=== PATIENT | female | born 1980 | race Caucasian/White ===

== ENCOUNTER → 2017-09-23 | Outpatient (CLI) | payer BC ==
[~2017-09-23] MED LIST: IBUP-1459 PO
[2017-09-23 17:36] LABS: HEMATOCRIT 39.7 % (37-47); HEMOGLOBIN 13.6 g/dL (12.0-16.0); MEAN CELL VOLUME 88.2 fL (80-100); MEAN CORPUSCULAR HEMOGLOBIN 30.2 pg (25-34); MEAN CORPUSCULAR HGB CONC 34.3 g/dl (32-36); MEAN PLATELET VOLUME 9.1 fL (7.4-10.4); PLATELET COUNT 350 K/uL (130-400); RED CELL DISTRIBUTION WIDTH CV 12.7 % (11.5-14.5); RED CELL DISTRIBUTION WIDTH SD 40.4 fL (36.4-46.3); WHITE BLOOD COUNT 11.07 K/uL (4.8-10.8)
[2017-09-23 19:23] LABS: ALBUMIN 4.3 gm/dl (3.4-5.0); ALT/SGPT 37 U/L (12-78); BLOOD UREA NITROGEN 10 mg/dl (7-18); CALCIUM 8.9 mg/dl (8.5-10.1); CARBON DIOXIDE 28 mmol/L (21-32); GLUCOSE 83 mg/dl (70-99); POTASSIUM 3.8 mmol/L (3.5-5.1); SODIUM 138 mmol/L (136-145)
[2017-09-23 19:34] LABS: ALKALINE PHOSPHATASE 82 U/L (45-117); AST/SGOT 18 U/L (15-37); TOTAL PROTEIN 7.9 gm/dl (6.4-8.2)
== END | disposition home or self-care (01) ==
LOC: C.LABPVFM 15:41
PROVIDERS: ATTEND Family Medicine
DX: L81.9 Disorder of pigmentation, unspecified (principal)

== ENCOUNTER → 2017-09-24 | Outpatient (CLI) | payer BC | END | disposition home or self-care (01) | LOC: C.LABPVFM 13:55 | PROVIDERS: ATTEND Family Medicine | DX: R74.8 Abnormal levels of other serum enzymes (principal) ==

== ENCOUNTER → 2017-12-17 | Outpatient (CLI) | payer BC | END | disposition home or self-care (01) | LOC: C.LABPVFM 15:51 | PROVIDERS: ATTEND Family Medicine | DX: E55.9 Vitamin D deficiency, unspecified (principal); R74.8 Abnormal levels of other serum enzymes ==

== ENCOUNTER 2019-04-17 10:21 | Observation (INO) ==
--- NOTE | 2019-03-27 09:46 | PAT Medication Instructions ---
Medication Instructions Date of Service March 27, 2019 Home Medications cholecalciferol (vitamin D3) [Vitamin D3] 2,000 - 3,000 unit PO DAILY DO NOT take the morning of surgery cholecalciferol (vitamin D3) [Vitamin D3] 2,000 - 3,000 unit PO DAILY Take morning of surgery NOTHING TO EAT OR DRINK AFTER MIDNIGHT Other Notes If you have any questions please call us at [phone] or [phone] or [phone] or [phone]
--- NOTE | 2019-03-27 09:52 | Anesthesiology Consultation ---
Date of Service March 27, 2019 Assessment & Plan (1) Encounter for pre-operative examination: - No previous anesthesia records. Chart Review Chart Review: Acceptable Risk for Surgery and Patient seen in Pre Admission Testing Consults Requested none Teaching & Discussion Pre-Anesthesia Teaching/Discussion Notes: Instructed NPO after midnight before surgery, except medications with 15 cc of water. Medication instructions provided according to the PAT guidelines. History Surgery Operation Date: 04/17/19 07:30 Proposed Procedures p Robotic Total Laparoscopic Hysterectomy - Allen Sharma Jr, MD, FACOG Height/Weight Height: 5 ft 3.5 in Weight: 77.5 kg Allergies Allergy/AdvReac Type Severity Reaction Status Date / Time bee venom protein (honey bee) Allergy Severe . Verified 03/27/19 08:25 No Known Drug Allergies Allergy throat Verified 03/27/19 08:25 swelling Medications Home Medications Medication Instructions Recorded Confirmed Last Taken cholecalciferol (vitamin D3) 2,000 - 3,000 unit PO DAILY 03/20/19 03/27/19 Unknown [Vitamin D3] Past Medical History Medical History History of basal cell cancer stomach Hx of Lyme disease Uterine fibroid Vitamin D deficiency Exercise / Class Metabolic Activity II 4-5 Yardwork/Stairs/Walk up hill ([employer] A [employer] at [employer], so very active there. Able to easily climb FOS. Denies CP or SOB. ) Past Family History Family History Grandfather (Maternal) Family history of diabetes mellitus Grandfather (Paternal) Family history of diabetes mellitus Grandmother (Paternal) Family history of diabetes mellitus Myocardial infarction Heart disease Hypertension Grandmother (Maternal) Family history of diabetes mellitus Father Family history of diabetes mellitus Alcohol abuse Mother Alcohol abuse Brother Anxiety Aunt Breast cancer Past Surgical History Surgical History History of basal cell carcinoma (BCC) excision under local History of removal of cyst done under local Past Anesthesia History No Family Hx of Anesthesia Complications Patient has never personally had anesthesia other than local. History of PONV No Hx of Motion Sickness Social History Smoking Status: Current every day smoker tobacco type: cigarettes Smoking cigarettes per day: 1/2-3/4 ppd x 20 years Do You Dip or Chew Tobacco: No Hx Alcohol Use: Yes Alcohol type: beer alcohol intake frequency: a few times a week Hx Substance Use: Yes substance use type: marijuana Last Used Substance Other:: couple months ago Review of Systems Patient denies chest pain, shortness of breath, dyspnea on exertion, reflux, cough, wheezing, palpitations. +Joint Pain (Ankles, Elbows) Physical Exam Vital Signs BP: 134/88 P: 91 R: 16 T: 98.7 SPO2: 98% on RA ENMT Thyromental Distance: > or= 3.5 Finger Breadths (4) Mallampati Class: I Neck normal visual inspection; neck extension not limited Respiratory normal respiratory effort Auscultation: lungs clear to auscultation bilaterally Cardiovascular Rate/Rhythm: regular rate and regular rhythm Heart Sounds: no murmur Neurologic moves all extremities Psychiatric Orientation: alert and oriented x 3 Testing Laboratory Results 03/27/19 10:03 Blood Type O Positive 03/27/19 10:03 Antibody Screen NEGATIVE 03/27/19 10:03
[2019-03-27 10:56] LABS: Basophils # (auto) 0.05 K/uL (0-0.2); Basophils % (auto) 0.6 %; Eosinophils # (auto) 0.17 K/uL (0-0.5); Hematocrit (blood only) 39.2 % (37-47); Hemoglobin 13.5 g/dL (12.0-16.0); Immature Granulocytes # (auto) 0.03 K/uL (0.00-0.02); Immature Granulocytes % (auto) 0.3 %; Lymphocytes # (auto) 2.82 K/uL (1.2-3.4); Lymphocytes % (auto) 32.4 %; Mean Corpuscular Hemoglobin 30.5 pg (25-34); Mean Corpuscular Hgb Conc 34.4 g/dL (32-36); Mean Corpuscular Volume 88.5 fL (80-100); Monocytes # (auto) 0.76 K/uL (0.11-0.59); Monocytes % (auto) 8.7 %; Neutrophils # (auto) 4.87 K/uL (1.4-6.5); Platelet Count 330 K/uL (130-400); RDW Coefficient of Variation 12.8 % (11.5-14.5); RDW Standard Deviation 41.7 fL (36.4-46.3); Red Blood Count 4.43 M/uL (4.2-5.4)
--- NOTE | 2019-03-27 13:29 | History and Physical Report ---
DATE OF ADMISSION: 04/17/2019 ADMITTING DIAGNOSES: 1. Symptomatic submucosal fibroid. 2. Menorrhagia. ADMISSION HISTORY: The patient is a 38-year-old 2, para 2, last menstrual period of 03/13, partner with vasectomy, who is admitted for total laparoscopic hysterectomy for a symptomatic submucosal fibroid. The patient presented for evaluation of heavy menstrual bleeding and menorrhagia. She underwent an office SIS which showed what appeared to be a 3 cm submucosal fibroid. Treatment options were discussed with this including hysteroscopic resection versus definitive surgical therapy and the patient has opted for definitive surgical therapy. PAST MEDICAL HISTORY: OBSTETRICAL: x2. 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 MEDICAL: Abnormal Pap smear, Lyme's disease. SURGICAL: Colposcopy. ALLERGIES: No known drug allergies. SOCIAL HISTORY: Positive for smoking. FAMILY HISTORY: Noncontributory. REVIEW OF SYSTEMS: As per HPI. ADMISSION PHYSICAL EXAMINATION: GENERAL: Shows a pleasant female in no acute distress. VITAL SIGNS: She has a blood pressure 124/80 and a weight of 168 pounds. HEENT EXAMINATION: Unremarkable. NECK: Supple. LUNGS: Clear. HEART: With a regular rhythm and rate. ABDOMEN: Soft, nontender. PELVIC: Shows normal external genitalia. The vaginal vault is pink and rugated. The cervical os is multiparous and closed. Bimanual examination shows an anterior mobile uterus. Adnexa show no palpable masses. RECTAL: Confirmatory. EXTREMITIES: Shows no deep calf tenderness. NEUROLOGIC: Grossly intact. IMPRESSION: A 38-year-old G2, P2 for total laparoscopic hysterectomy for symptomatic submucosal fibroid. PLAN: Risks, benefits and alternatives to the surgery have been discussed. While the benefits will be cessation of the patient's menstrual cycles, the risks are bleeding, infection, and inadvertent injury to bowel or bladder, rehospitalization or need for surgery. We have also discussed the possibility that surgery will not be able to be completed laparoscopically, and will need to be converted to an open procedure. The patient understands this, the permit has been signed, and she wishes to proceed.
[~2019-04-17 10:21] MED LIST changes: +ACETAMINOPHEN 1000 MG/100 ML IV IV ONE; +CEFAZOLIN 2000MG 2,000 MG/15 ML SYR IV SCH; +DEXAMETHASONE SOD INJ 4 MG/ML VIAL ONE; -IBUP-1459 PO; +LACTATED RINGER'S 1,000 ML IV SCH; +LIDOCAINE HCL 2% 2 ML VIAL/AMP(20MG/ML) INFIL ONE; +LR 15ML/HR IV SCH; +MIDAZOLAM HCL 1 MG/ML 2ML VIAL ONE; +ONDANSETRON INJ 2 MG/ML 2 ML VIAL ONE; +PROPOFOL IV EMULSION 10 MG/ML 20 ML VIAL IV ONE; +ROCURONIUM BROMIDE 10 MG/ML 5 ML VIAL ONE; +fentaNYL citrate 100 MCG/2 ML VIAL ONE
[2019-04-17] MEDS ORDERED: BUPIVACAINE 0.5 % 5 MG/1 ML MPF 30ML VIAL ONE (10:51)
[2019-04-17] MEDS ORDERED: METHYLENE BLUE 0.5% 10 ML VIAL ONE (10:51)
--- NOTE | 2019-04-17 11:00 | History & Physical Bridge Note ---
Date of Service April 17, 2019 History & Physical Bridge Note I have examined the patient, reviewed the History & Physical and in the interval since the performance of the History & Physical I have noted the following changes of clinical significance: no changes noted
[2019-04-17] MEDS ORDERED: PROMETHAZINE HCL 12.5 MG in SODIUM CHLORIDE 0.9% 50 ML IV PRN (11:32)
[2019-04-17] MEDS ORDERED: HYDROmorphone INJ 2 MG/ML SYR/VIAL IV PRN (11:32)
[2019-04-17] MEDS ORDERED: ONDANSETRON INJ 2 MG/ML 2 ML VIAL IV PRN ×2 (11:32→16:41)
[2019-04-17] MEDS ORDERED: ePHEDrine sulfate 50 MG/ML AMP IV PRN (11:32)
[2019-04-17] MEDS ORDERED: ATROPINE SULFATE 0.1 MG/ML 10ML SYR IV PRN (11:32)
[2019-04-17 12:31] LABS: Pregnancy Test, Serum Negative (Negative)
[2019-04-17] MEDS ORDERED: PROPOFOL IV EMULSION 10 MG/ML 20 ML VIAL IV ONE (12:58)
[2019-04-17] MEDS ORDERED: CEFAZOLIN 250 MG/ML 1 GM VIAL ONE (12:58)
[2019-04-17] MEDS ORDERED: CEFAZOLIN 1000MG 1,000 MG/7.5 ML SYR IV ONE (13:05)
[2019-04-17] MEDS ORDERED: fentaNYL citrate 100 MCG/2 ML VIAL ONE ×2 (13:30→13:47)
[2019-04-17] MEDS ORDERED: KETOROLAC 30 MG/ML VIAL ONE (14:23)
[2019-04-17] MEDS ORDERED: NEOSTIGMINE METHYLSULFATE 5 MG/5 ML SYR ONE (14:23)
[2019-04-17] MEDS ORDERED: GLYCOPYRROLATE 0.2 MG/ML VIAL ONE (14:23)
--- NOTE | 2019-04-17 14:30 | Post Operative Brief Note ---
PG Immediate Post Op with CF Date of Surgery April 17, 2019 Pre & Post Diagnosis Operation Date: 04/17/19 11:50 Pre-Op Diagnosis: Menorrhagia, Fibroid Post-Op Diagnosis: Menorrhagia, Fibroid Procedure Operation Date: 04/17/19 11:50 Actual Procedures p Robotic Total Laparoscopic Hysterectomy and bilateral salpingo-oopherectomy, cystoscopy() - Allen Sharma Jr, MD, FACOG Surgeon Allen Sharma Jr, MD, FACOG Supervisor Finish End Maximilian Estimated Blood Loss 75 Findings See Below (multiparous uterus, normal appearing tubes and ovaries bilaterally, TLH, bilateral salpingectomy, Post-preocedure cystoscopy, bilateral ureteral jets seen, no sutures in bladder) Specimens Specimen Description: A. Left fallopian tube B. Uterus, cervix, right fallopian tube Drains Casanova Catheter
--- NOTE | 2019-04-17 14:57 | Operative Report ---
DATE OF OPERATION: 04/17/2019 PREOPERATIVE DIAGNOSES: 1. Menorrhagia with regular cycles. 2. Submucosal leiomyoma of the uterus. POSTOPERATIVE DIAGNOSES: 1. Menorrhagia with regular cycles. 2. Submucosal leiomyoma of the uterus. PROCEDURE PERFORMED: 1. Total laparoscopic hysterectomy. 2. Bilateral salpingectomy. 3. Post-procedure cystoscopy. SURGEON: Allen Sharma MD LEAD PROCESS ENGINEER: Shantel Yao DO. ANESTHESIA: General. FINDINGS: Laparoscopic examination of the pelvis showed normal appearing uterus, tubes, and ovaries, normal appearing appendix. Total laparoscopic hysterectomy with bilateral salpingectomy performed. Post-procedure cystoscopy showed bilateral ureteral jets consistent with ureteral patency and no sutures in the bladder. PROCEDURE IN DETAIL: The patient was taken to the operating room and after general anesthesia, was placed in a dorsal lithotomy position and draped and prepped in the usual fashion. Casanova catheter was inserted into the bladder and remained there throughout the procedure. Cervical stay sutures were placed at 12 and 3 o'clock with 0 Vicryl suture. VCare uterine manipulator was inserted into the uterus and fastened to the cervix with the stay sutures. The VCare locked into place. Small subumbilical incision was made. Veress needle was introduced into the pelvic cavity, which was then insufflated with 3 liters of CO2. Veress needle was removed and then a 12 mm sharp trocar was used to insert the laparoscope supraumbilically. Pelvic organs were visualized and then under direct laparoscopic guidance, robotic operative reports were placed, 1 on the left and 2 on the right and the left, 10 mm assistance port. The da Farzana robot was brought to the operating table and successfully docked. Camera was placed under direct camera guidance. The following instruments were placed through arm #1, the monopolar scissors, arm #2 bipolar cautery instrument and through arm #3 the ProGrasp instrument. Surgeon went to the operative console. Pelvic organs were again visualized with the description as above. Both ureters were identified at the pelvic brim. The left fallopian tube was excised along the mesosalpinx, cauterized at its insertion into the uterus and removed from the field. In a similar fashion, the right fallopian tube was excised from the mesosalpinx, cauterized, cut and removed from the field. The left round ligament was ligated, cut, opening the anterior leaf of the broad ligament. The suspensory ligament of the uterus was then cauterized and cut, freeing the ovary from the uterine appendage. The bladder flap was bluntly and sharply taken down over the level of the cervix. Uterine vessels were skeletonized on the left hand side and then using the bipolar cautery instrument, the uterine vessels were cauterized in 3 contiguous brasher. Dissection was then turned to the right. Round ligament was identified, cauterized, cut open the anterior leaf of the broad ligament which was taken down to join the contralateral side. Right uterine suspensory ligament was cauterized and cut. The uterine vessels were then skeletonized on the right and cauterized in 3 contiguous brasher. These were then cut. The cardinal ligament and uterosacral ligament was dissected off the cervical junction with cauterization and cutting. Dissection turned back to the left hand side. Uterine vessels were cut on the left cardinal uterosacral ligament taken off of the cervix. The bladder was taken down in a circumferential fashion and the VCare cup could be seen. A posterior colpotomy incision was made extending down to the VCare which was then completed in a circumferential fashion, the cervix from the vagina. The uterus was delivered into the vaginal canal. Surgical instruments were removed through arm #2 was the william needle box through arm #1, the Prograf. The vaginal cuff was then closed from the angles to the midline with 2-0 Vicryl V-Loc sutures. Hemostasis present. All pedicles were inspected for hemostasis, which was present. Casanova catheter was then removed from the bladder and the bladder was insufflated with normal saline. The patient had received intravenous methylene blue. The bladder ureteral orifices were identified. Bilateral ureteral jets were seen. No evidence of sutures in the bladder. The fluid was allowed to escape and a clean Casanova catheter was inserted into the bladder. Surgical instruments were removed and the robot was undocked and set back from the table. Surgical ports were removed. Through the 10 mm ports supraumbilically and the left paramedial surgical port, the fascia was closed with interrupted 0 Vicryl suture. The skin incisions were all closed then with interrupted 4-0 Monocryl subcuticular stitches. Marcaine 0.5% was injected into all incisions. The patient was taken out of dorsal lithotomy to recovery room in satisfactory condition. I attest to the content of the Intraoperative Record and any orders documented therein. Any exception s are noted below.
[2019-04-17] MEDS: fentaNYL citrate 100 MCG/2 ML VIAL IV PRN ×2 (14:58→15:03)
--- NOTE | 2019-04-17 15:14 | Anesthesiology Progress Note ---
Date of Service April 17, 2019 Anesthesia Post Procedure Vital Signs Vital Signs: Temp Pulse Pulse Resp BP BP Pulse Ox 04/17/19 15:10 98.1 F 74 16 122/80 95 04/17/19 15:00 69 16 143/89 H 99 04/17/19 14:50 72 16 132/82 100 04/17/19 14:43 97.5 F L 75 22 136/93 98 04/17/19 10:59 98.4 F 71 16 142/94 H 98 Pain Intensity Abdomen: Pain Intensity: 3 Transfer of Care Handoff Completed per policy Notes Mental Status: alert / awake / arousable and participated in evaluation Patient Amnestic to Procedure: Yes Nausea / Vomiting: adequately controlled Pain: adequately controlled Airway Patency, RR, SpO2: stable & adequate BP & HR: stable & adequate Hydration State: stable & adequate Anesthetic Complications: no major complications apparent and Pt Satisfied with anesthetic care
[2019-04-17] MEDS ORDERED: OXYCODONE/ACETAMINOPHEN 5mg/325mg TAB PO PRN ×2 (16:41)
[2019-04-17] MEDS ORDERED: IBUPROFEN 600 MG TAB PO PRN (16:41)
[2019-04-17] MEDS ORDERED: LACTATED RINGER'S 1,000 ML IV SCH (16:41)
[2019-04-17] MEDS ORDERED: KETOROLAC 30 MG/ML VIAL IV PRN (16:41)
[2019-04-17] MEDS ORDERED: ACETAMINOPHEN 325 MG TAB PO PRN (16:41)
--- NOTE | 2019-04-17 17:43 | Discharge Summary ---
Date of Service April 17, 2019 Admission HPI Per Admitting Provider The patient is a 38-year-old 2, para 2, last menstrual period of 03/13, partner with vasectomy, who is admitted for total laparoscopic hysterectomy for a symptomatic submucosal fibroid. The patient presented for evaluation of heavy menstrual bleeding and menorrhagia. She underwent an office SIS which showed what appeared to be a 3 cm submucosal fibroid. Treatment options were discussed with this including hysteroscopic resection versus definitive surgical therapy and the patient has opted for definitive surgical therapy. Admission Exam (Per Admitting) Constitutional WD/WN, vitals as above Neck trachea midline, no thyromegaly Respiratory normal respiratory effort, lungs clear to auscultation Cardiovascular RRR, no murmur, no edema Extremities: no calf tenderness Gastrointestinal (Abdomen) normal bowel sounds, soft, nontender, no hepatosplenomegaly Skin no lesions Psychiatric A+Ox3, euthymic affect Genitourinary normal external appearance; no CVA tenderness Speculum/Bimanual Exam: normal appearance of the vagina and normal appearance of the cervix; normal uterine size, no abnormal vaginal discharge, no cervical tenderness, normal uterine mobility, uterus not enlarged and no adnexal mass Lymphatic no lymphadenopathy Discharge Data Procedures Performed Operation Date: 04/17/19 11:50 Actual Procedures p Robotic Total Laparoscopic Hysterectomy and bilateral salpingo- oopherectomy(Not Applicable) - Allen Sharma Jr, MD, [facility] Cystoscopy(Not Applicable) - Allen Sharma Jr, MD, [facility] [place] Hospital Course (1) Menorrhagia with regular cycle: (2) Leiomyoma of uterus: On the day of admission the patient was taken to the operating room where she underwent the above listed operative procedures. Operative findings showed a large multiparous uterus, with normal-appearing tubes and ovaries bilaterally. Total laparoscopic hysterectomy with bilateral salpingectomy performed. Postprocedure cystoscopy showed bilateral ureteral jets and no evidence of sutures in the bladder. Postoperatively the patient did well. The patient tolerated a regular diet, ambulated without difficulty, and was able to void. The PEG patient requested discharge home on the day of surgery. Routine postoperative instructions and prescriptions given. All questions answered of the patient. Patient will follow-up in 2 weeks for postoperative check, but as always she is been instructed to call with any questions problems or difficulties
--- NOTE | 2019-04-17 19:56 | Gynecologic Progress Note ---
Date of Service April 17, 2019 Assessment & Plan (1) Menorrhagia with regular cycle: (2) Leiomyoma of uterus: -Patient doing well -Discussed surgery and findings with her -Tolerating p.o. without difficulty -Able to void -Patient desires discharge -Instructions and prescriptions given -All questions answered of the patient -Follow-up in 2 weeks for postoperative check Subjective Tolerating p.o. well, no nausea, desires discharge Physical Exam Gastrointestinal (Abdomen): Dressing dry, appropriate postoperative discomfort Results & Data Vital Signs (Past 12 Hours) Vital Signs Temp Pulse Pulse Resp BP BP Pulse Ox 04/17/19 18:30 98.1 F 73 20 143/91 H 97 04/17/19 17:30 97.9 F 68 20 140/90 98 04/17/19 16:30 97.7 F 67 18 139/89 98 04/17/19 16:00 98.1 F 77 18 133/86 97 04/17/19 15:30 98.1 F 68 18 136/94 96 04/17/19 15:20 83 16 127/75 95 04/17/19 15:10 98.1 F 74 16 122/80 95 04/17/19 15:00 69 16 143/89 H 99 04/17/19 14:50 72 16 132/82 100 04/17/19 14:43 97.5 F L 75 22 136/93 98 04/17/19 10:59 98.4 F 71 16 142/94 H 98 Pulse Ox 04/17/19 18:30 04/17/19 17:30 04/17/19 16:30 04/17/19 16:00 04/17/19 15:30 96 04/17/19 15:20 04/17/19 15:10 04/17/19 15:00 04/17/19 14:50 04/17/19 14:43 04/17/19 10:59 PG Care Time/CCT Total # of Minutes Spent Total Time Spent with Patient: Total time spent is greater than 50% in coordination of care (as documented) at patient's floor/unit and/or counseling patient:
== END 2019-04-17 20:30 | disposition home or self-care (01) ==
LOC: 4N 10:21 → ASU 10:21